=== PATIENT | male | born 1950 | race African-American/Black ===

== ENCOUNTER 2021-11-29 13:22 | Emergency (ER) | payer BC, MEDICARE ==
[~2021-11-29] VITALS: Ht 175.3 cm; Wt 73.0 kg
[2021-11-29] MEDS ORDERED: SODIUM CHLORIDE 0.9% 1,000 ML IV ONE (14:30)
[2021-11-29 14:45] LABS: HEMATOCRIT. 37.8 % (42.0-52.0); HEMOGLOBIN. 12.6 g/dL (14.0-18.0); MEAN CORPUSCULAR HEMOGLOBIN 29.1 pg (28.0-32.0); MEAN CORPUSCULAR VOLUME 87.1 fL (80.0-94.0); MEAN PLATELET VOLUME 8.6 fl (7.4-10.4); PLATELET 230 x1000/uL (130-400); RED BLOOD CELL COUNT 4.35 mill/uL (4.7-6.1); RED CELL DISTRIBUTION WIDTH 12.9 % (11.6-14.6)
[2021-11-29 14:54] LABS: CHLORIDE 104 mEq/L (98-107)
[2021-11-29 16:47] LABS: PLATELET ESTIMATE NORMAL
[2021-11-29 19:45] VITALS: BP 128/58
== END 2021-11-29 19:49 | disposition home or self-care (01) ==
LOC: ER 15:18
DX: R55 Syncope and collapse (principal); I10 Essential (primary) hypertension; E11.9 Type 2 diabetes mellitus without complications; Z98.890 Other specified postprocedural states
CPT/HCPCS: 36415; 70450; 71045; 80053; 83880; 84484; 85025; 93005; 96360; 96361; 99285; J7030